=== PATIENT | female | born 2000 | race Caucasian/White ===

== ENCOUNTER 2024-02-10 18:23 | Emergency (ER) | payer BC ==
[2024-02-10 19:31] LABS: BASOPHILS ABSOLUTE AUTO 0.1 x10-3/uL (0.0-0.1); BASOPHILS PERCENT AUTO 0.8 % (0.2-1.5); EOSINOPHILS ABSOLUTE AUTO 0.2 x10-3/uL (0.0-0.8); EOSINOPHILS PERCENT AUTO 3.4 % (0.6-8.1); HEMATOCRIT 43.9 % (34.2-48.2); HEMOGLOBIN 15.5 g/dL (11.4-15.5); LYMPHOCYTES ABSOLUTE AUTO 1.7 x10-3/uL (1.0-4.4); MEAN CORPUSCULAR HEMOGLOBIN 31.8 pg (23.9-33.9); MEAN CORPUSCULAR HGB CONC 35.4 g/dL (31.9-34.8); MEAN CORPUSCULAR VOLUME 89.7 fL (76.7-100.5); MONOCYTES ABSOLUTE AUTO 0.4 x10-3/uL (0.3-1.0); MONOCYTES PERCENT AUTO 6.6 % (4.4-15.7); NEUTROPHILS ABSOLUTE AUTO 4.1 x10-3/uL (1.5-6.3); NEUTROPHILS PERCENT AUTO 63.2 % (30.8-76.2); PLATELET COUNT,PLT 194 x10(3)uL (151-488); RED BLOOD CELL COUNT 4.89 x10(6)uL (3.60-5.20); RED CELL DISTRIBUTION WIDTH 12.6 % (12.3-16.5); WHITE BLOOD CELL COUNT,WBC 6.6 x10-3/uL (3.0-10.3)
[2024-02-10 19:35] LABS: BLOOD UREA NITROGEN,BUN 9 mg/dL (7-18); CALCIUM 9.4 mg/dL (8.6-10.2); CARBON DIOXIDE,CO2 30 mmol/L (21-32); CHLORIDE,CL 104 mmol/L (100-110); EST CRCL DRUG DOSING (CG) 74.26 mL/min; ESTIMATED GFR 80 mL/min (>60); GLUCOSE RANDOM 105 mg/dL (80-116); POTASSIUM,K 3.9 mmol/L (3.5-5.3); SODIUM,NA 140 mmol/L (135-145)
[2024-02-10 19:36] LABS: INR 0.99 (1.00-1.24); PROTHROMBIN TIME 10.3 sec (9.0-11.1)
[2024-02-10 19:41] LABS: A/G RATIO 1.1; ALANINE AMINOTRANSFERASE,ALT 24 U/L (12-36); ALBUMIN 4.3 g/dL (3.5-5.2); ALKALINE PHOSPHATASE 46 IU/L (56-112); ASPARTATE AMNIOTRANSFERASE,AST 19 IU/L (5-25); BILIRUBIN TOTAL 0.5 mg/dL (0.1-1.3); PROTEIN TOTAL,TP 8.4 g/dL (6.0-8.0)
[2024-02-10] MEDS: Iopamidol 755 Mg/ML 100 ML Bottle IV SCH (20:13)
== END 2024-02-10 22:00 | disposition home or self-care (01) ==
LOC: FB.ED 18:23
DX: K64.9 Unspecified hemorrhoids (principal)
CPT/HCPCS: 36415; 74177; 80053; 85025; 85610; 99283; 99284; Q9967